=== PATIENT | female | born 1965 | race Caucasian/White ===

== ENCOUNTER 2021-02-21 13:28 | Emergency (ER) | payer BC ==
[2021-02-21 15:37] LABS: ANION GAP 9.4 meq/L (7-15); CHLORIDE,CL 107 mmol/L (98-107); SODIUM,NA 143 mmol/L (136-145)
[2021-02-21] MEDS: Lactulose Soln 10 GM/15 ML 30 ML UD Cup PO ONE (15:54)
== END 2021-02-21 17:00 | disposition home or self-care (01) ==
LOC: LL.ED 13:28
DX: K59.00 Constipation, unspecified (principal)
CPT/HCPCS: 36415; 74018; 80053; 83735; 85025; 99283; A9270

== ENCOUNTER 2021-06-23 23:51 | Emergency (ER) | payer BC ==
[2021-06-24] MEDS: Ketorolac 30 MG/ML SDV IM ONE (00:38)
[2021-06-24] MEDS: Lidocaine 1% 5 ML VIAL INJECT ONE (00:43)
[2021-06-24] MEDS: Bupivacaine 0.5% 10 ML SDV INJECT ONE (00:43)
== END 2021-06-24 01:25 | disposition home or self-care (01) ==
LOC: LL.ED 23:51
DX: S52.501A Unspecified fracture of the lower end of right radius, initial encounter for closed fracture (principal); S52.601A Unspecified fracture of lower end of right ulna, initial encounter for closed fracture; Z90.49 Acquired absence of other specified parts of digestive tract; Z79.899 Other long term (current) drug therapy; Z79.84 Long term (current) use of oral hypoglycemic drugs; W10.9XXA Fall (on) (from) unspecified stairs and steps, initial encounter
CPT/HCPCS: 73100-RT; 96372; 99283; 99283-25; J1885; J3490